=== PATIENT | female | born 1940 | race Asian ===

== ENCOUNTER 2017-11-07 06:28 | Inpatient (IN) | payer MEDICARE, OTHER ==
[~2017-11-07] VITALS: Ht 162.6 cm; Wt 57.8 kg
[2017-11-07] MEDS ORDERED: 0.9% SODIUM CHLORIDE 10 ML SYRINGE IVP PRN (06:45)
[2017-11-07] MEDS ORDERED: SODIUM CHLORIDE 0.9% 500 ML IV ONE (06:45)
[2017-11-07 06:52] LABS: GLUCOSE,POINT OF CARE 125 MG/DL (70-110)
[2017-11-07 07:06] LABS: BASOPHILS # (AUTO) 0.01 K/uL (0.00-0.20); BASOPHILS % (AUTO) 0.1 % (0.0-2.0); EOSINOPHILS % (AUTO) 0.01 % (1.0-6.0); LYMPHOCYTES # (AUTO) 1.4 K/uL (1.0-4.8); LYMPHOCYTES % (AUTO) 6.6 % (22.0-44.0); MEAN CORPUSCULAR HEMOGLOBIN 30.8 pg (26.0-34.0); MEAN CORPUSCULAR HGB CONC 32.7 G/dL (31.0-37.0); MEAN CORPUSCULAR VOLUME 94 fL (80-100); MONOCYTES # (AUTO) 0.5 K/uL (0.1-1.0); MONOCYTES % (AUTO) 2.3 % (2.0-9.0); NEUTROPHILS # (AUTO) 19.3 K/uL (1.8-7.7); PLATELET COUNT (AUTO) 176 K/uL (150-450); RED BLOOD CELL COUNT(AUTO) 5.99 MIL/uL (4.00-5.20); RED CELL DISTRIBUTION WIDTH 12.8 % (11.5-14.5)
[2017-11-07 07:07] LABS: HEMATOCRIT 54.5 % (36-46); HEMOGLOBIN 17.5 g/dL (12.0-16.0); NEUTROPHILS % (AUTO) 91.1 % (40.0-70.0)
[2017-11-07 07:19] LABS: APPEARANCE,URINE CLOUDY (CLEAR); BILIRUBIN,URINE NEGATIVE (NEGATIVE); GLUCOSE, URINE (UA) NEGATIVE (NEGATIVE); KETONES,URINE NEGATIVE (NEGATIVE); LEUKOCYTE ESTERASE ,URINE NEGATIVE (NEGATIVE); NITRATE,URINE NEGATIVE (NEGATIVE); OCCULT BLOOD,URINE NEGATIVE (NEGATIVE); UROBILINOGEN,URINE 0.2 mg/dL (<=1.0)
[2017-11-07 07:20] LABS: INR 1.3 (0.9-1.1); PROTHROMBIN TIME 13.7 SEC (9.4-11.6)
[2017-11-07 07:25] LABS: PROTEIN,URINE TRACE (NEGATIVE)
[2017-11-07 08:12] LABS: LACTIC ACID 4.3 mmol/L (0.4-2.0)
[2017-11-07 08:18] LABS: ALBUMIN 4.3 g/dL (3.4-5.0); BILIRUBIN,TOTAL 1.8 mg/dL (0.1-1.0); CALCIUM, TOTAL 9.6 mg/dL (8.8-10.5); CREATININE 7.33 mg/dL (0.60-1.30); POTASSIUM 3.1 mmol/L (3.5-5.1); TOTAL PROTEIN, SERUM 9.1 g/dL (6.4-8.2)
[2017-11-07] MEDS ORDERED: SODIUM CHLORIDE 0.9% 1,000 ML IV ONE ×2 (08:30→10:45)
[2017-11-07] MEDS ORDERED: AZITHROMYCIN 500 MG/NS 250 ML IV SCH (10:15)
[2017-11-07] MEDS ORDERED: CefTRIAXone SODIUM 1 GM in DEXTROSE 5%-WATER 10 ML IV ONE (10:15)
[2017-11-07] MEDS: POTASSIUM CHL 20 MEQ/0.9% NS 1,000 ML IV SCH ×2 (10:15→18:15)
[2017-11-07 11:30] VITALS: BP 128/74
[2017-11-07] MEDS ORDERED: MAGNESIUM HYDROXIDE SUSPENSION 30 ML UDCUP PO PRN (14:45)
[2017-11-07] MEDS ORDERED: ACETAMINOPHEN 325 MG TABLET PO PRN (14:45)
[2017-11-07] MEDS ORDERED: MORPHINE SULFATE 2 MG/ML SYRINGE IVP PRN (14:45)
[2017-11-07] MEDS ORDERED: IPRATROPIUM BROMIDE 0.5 MG/2.5 ML NEB SOLUTION NEB PRN (14:45)
[2017-11-07] MEDS ORDERED: ONDANSETRON HCL 4 MG/2 ML VIAL IVP PRN (14:45)
[2017-11-07] MEDS ORDERED: HYDROCODONE/ACETAMINOPHEN 5-325 MG TABLET PO PRN (14:45)
[2017-11-07] MEDS ORDERED: ALBUTEROL SULFATE 2.5 MG/0.5 ML NEB SOLUTION NEB PRN (14:45)
[2017-11-07] MEDS ORDERED: ZOLPIDEM TARTRATE 5 MG TABLET PO PRN (14:45)
[2017-11-07] MEDS ORDERED: BISACODYL 10 MG RECTAL RECTAL SUPPOSITORY PR PRN (14:45)
[2017-11-07] MEDS ORDERED: CefTRIAXone SODIUM 1 GM in DEXTROSE 5%-WATER 10 ML IV SCH (15:00)
[2017-11-07 15:02] VITALS: BP 129/74
[2017-11-07 16:26] LABS: ABG A-A DIFF O2 597.4 mmHg (10-20.0); ABG BASE EXCESS -13.1 mmol/L (-2.0-3.0); ABG CARBOXYHEMOGLOBIN 0.6 % (0.0-1.5); ABG HCO3 16.1 mmol/L (22.0-26.0); ABG METHEMOGLOBIN 0.4 % (0.0-1.5); ABG OXYGEN SATURATION 96.1 % (95.0-98.0); ABG OXYHEMOGLOBIN 95.1 % (94.0-100.0); ABG PCO2 26 mmHg (35-45); ABG PH 7.319 (7.35-7.450); ABG TOTAL HEMOGLOBIN 17.2 G/dL (12.0-18.0); PO2, ARTERIAL BG 89.1 mmHg (75.0-83.0); SITE, BLOOD GAS LFT FEMORAL; SOURCE, BLOOD GAS ARTERIAL
[2017-11-07 16:27] LABS: O2 DEVICE,BLOOD GAS BAG VALVE MASK (ROOM AIR)
[2017-11-07] MEDS ORDERED: DEXTROSE 5%-0.45% SODIUM CHL 1,000 ML IV SCH (16:47)
[2017-11-07] MEDS ORDERED: MIDAZOLAM HCL 5 MG/ML VIAL ONE (17:03)
[2017-11-07] MEDS ORDERED: NOREPINEPHRINE 4 MG/D5%-WATER 250 ML IV ONE (17:18)
[2017-11-07] MEDS ORDERED: PHENYLEPHRINE 200 MG/D5%-WATER 250 ML IV PRN (17:30)
[2017-11-07 17:44] LABS: ABG A-A DIFF O2 603.1 mmHg (10-20.0); ABG BASE EXCESS -19.7 mmol/L (-2.0-3.0); ABG CARBOXYHEMOGLOBIN 0.3 % (0.0-1.5); ABG HCO3 10.9 mmol/L (22.0-26.0); ABG METHEMOGLOBIN 0.2 % (0.0-1.5); ABG OXYGEN CONTENT 19.5 mL/dL (15.0-23.0); ABG OXYGEN SATURATION 76.7 % (95.0-98.0); ABG OXYHEMOGLOBIN 76.3 % (94.0-100.0); ABG PCO2 40 mmHg (35-45); ABG PH 7.045 (7.35-7.450); ABG TOTAL HEMOGLOBIN 18.2 G/dL (12.0-18.0); O2 DEVICE,BLOOD GAS VENTILATOR (ROOM AIR); PO2, ARTERIAL BG 64.5 mmHg (75.0-83.0); SITE, BLOOD GAS RT RADIAL; SOURCE, BLOOD GAS ARTERIAL; TEMPERATURE, FAHRENHEIT, BG 102.1 FAHREN (96.0-98.6)
[2017-11-07 17:45] LABS: PEEP,BG 5 cm H2O; VT, ABG 500 ml
[2017-11-07] MEDS ORDERED: VANCOMYCIN HCL 1 GM in DEXTROSE 5%-WATER 250 ML IV ONE (18:00)
[2017-11-07] MEDS: HEPARIN SODIUM,PORCINE 5,000 UNITS/ML VIAL SQ SCH ×2 (18:37→23:11)
[2017-11-07] MEDS: PIPERACILLIN SODIUM/TAZOBACTAM 2.25 GM in DEXTROSE 5%-WATER 50 ML IV SCH (18:37)
[2017-11-07] MEDS: NOREPINEPHRINE 4 MG/D5%-WATER 250 ML IV PRN (18:38)
[2017-11-07] MEDS: PHENYLEPHRINE 200 MG/D5%-WATER 250 ML IV PRN (18:39)
[2017-11-07] MEDS ORDERED: VANCOMYCIN HCL 1 GM/D5% WATER 200 ML IV PRN (19:15)
[2017-11-07] MEDS ORDERED: INFLUENZA VIRUS VACCINE QVS 2017-18 (3YR+)/PF 60 MCG/0.5 ML SYRINGE IM ONE (19:15)
[2017-11-07 20:00] VITALS: BP 125/80
[2017-11-07 20:02] LABS: GLUCOMETER DEV NAME(LOC) 5S 2N; GLUCOSE,POINT OF CARE 118 MG/DL (70-110)
[2017-11-07 20:04] LABS: ABG A-A DIFF O2 467.7 mmHg (10-20.0); ABG BASE EXCESS -24.7 mmol/L (-2.0-3.0); ABG CARBOXYHEMOGLOBIN 0.4 % (0.0-1.5); ABG METHEMOGLOBIN 0.6 % (0.0-1.5); ABG OXYGEN CONTENT 23.8 mL/dL (15.0-23.0); ABG OXYGEN SATURATION 99.1 % (95.0-98.0); ABG OXYHEMOGLOBIN 98.1 % (94.0-100.0); ABG PCO2 26 mmHg (35-45); PO2, ARTERIAL BG 216.5 mmHg (75.0-83.0); SOURCE, BLOOD GAS ARTERIAL; TEMPERATURE, FAHRENHEIT, BG 100.8 FAHREN (96.0-98.6)
[2017-11-07 20:12] LABS: ABG PH 7.011 (7.35-7.450)
[2017-11-07 20:13] LABS: O2 DEVICE,BLOOD GAS VENTILATOR (ROOM AIR); PEEP,BG 5 cm H2O; SITE, BLOOD GAS RT RADIAL; VT, ABG 500 ml
[2017-11-07 21:03] LABS: INFLUENZA TYPE A NEGATIVE FOR TYPE A (NEGATIVE); INFLUENZA TYPE B NEGATIVE FOR TYPE B (NEGATIVE)
[2017-11-07] MEDS: DOCUSATE SODIUM 100 MG CAPSULE PO SCH (21:56)
[2017-11-07] MEDS ORDERED: SODIUM BICARBONATE 150 MEQ in DEXTROSE 5%-WATER 1,000 ML IV SCH (22:00)
[2017-11-07] MEDS ORDERED: SODIUM BICARBONATE [ADULT] 8.4% 50 MEQ/50 ML SYRINGE IVP ONE (22:00)
[2017-11-08] VITALS: BP 91/55
[2017-11-08] MEDS: PIPERACILLIN SODIUM/TAZOBACTAM 2.25 GM in DEXTROSE 5%-WATER 50 ML IV SCH ×2 (02:14→10:09)
[2017-11-08] MEDS: PHENYLEPHRINE 200 MG/D5%-WATER 250 ML IV PRN (03:17)
[2017-11-08] MEDS: NOREPINEPHRINE 4 MG/D5%-WATER 250 ML IV PRN ×3 (03:17→10:45)
[2017-11-08 04:00] VITALS: BP 80/49
[2017-11-08 05:16] LABS: EOSINOPHILS % (AUTO) 0 % (1.0-6.0); HEMATOCRIT 49.6 % (36-46); LYMPHOCYTES # (AUTO) 0.7 K/uL (1.0-4.8); LYMPHOCYTES % (AUTO) 15.4 % (22.0-44.0); MEAN CORPUSCULAR HEMOGLOBIN 30.7 pg (26.0-34.0); MEAN CORPUSCULAR HGB CONC 32.3 G/dL (31.0-37.0); MEAN CORPUSCULAR VOLUME 95 fL (80-100); MONOCYTES # (AUTO) 0.1 K/uL (0.1-1.0); MONOCYTES % (AUTO) 1.2 % (2.0-9.0); NEUTROPHILS # (AUTO) 3.6 K/uL (1.8-7.7); NEUTROPHILS % (AUTO) 83.4 % (40.0-70.0); RED BLOOD CELL COUNT(AUTO) 5.21 MIL/uL (4.00-5.20); RED CELL DISTRIBUTION WIDTH 13.8 % (11.5-14.5)
[2017-11-08] MEDS ORDERED: VASOPRESSIN 40 UNITS in DEXTROSE 5%-WATER 98 ML IV PRN (05:35)
[2017-11-08 05:57] LABS: ALBUMIN 2.1 g/dL (3.4-5.0); BILIRUBIN,TOTAL 1.5 mg/dL (0.1-1.0); CALCIUM, TOTAL 7.3 mg/dL (8.8-10.5); CREATININE 8.59 mg/dL (0.60-1.30); MAGNESIUM 2.4 mg/dL (1.80-2.40); PHOSPHORUS 7.9 mg/dL (2.5-4.9); TOTAL PROTEIN, SERUM 5.2 g/dL (6.4-8.2)
[2017-11-08 07:22] LABS: POTASSIUM 2.9 mmol/L (3.5-5.1)
[2017-11-08] MEDS ORDERED: AMIODARONE HCL 150 MG in DEXTROSE 5%-WATER 97 ML IV ONE (07:30)
[2017-11-08] MEDS ORDERED: AMIODARONE HCL 360 MG in DEXTROSE 5%-WATER 242.8 ML IV ONE (07:30)
[2017-11-08] MEDS ORDERED: POTASSIUM CHL 10 MEQ/WATER 200 ML IV ONE (07:37)
[2017-11-08 07:44] LABS: PLATELET COUNT (AUTO) 67 K/uL (150-450)
[2017-11-08] MEDS ORDERED: POTASSIUM CHL 10 MEQ/WATER 50 ML IV ONE (07:45)
[2017-11-08] MEDS: DOPamine HCL 400 MG/D5%-WATER 250 ML IV PRN ×2 (08:06→12:09)
[2017-11-08] MEDS ORDERED: EPINEPHrine 1:10,000 [1 MG/10 ML] SYRINGE ONE (08:42)
[2017-11-08] MEDS: DOCUSATE SODIUM 100 MG CAPSULE PO SCH (09:00)
[2017-11-08] MEDS ORDERED: PANTOPRAZOLE SODIUM 40 MG/VIAL IVP SCH (09:00)
[2017-11-08 09:11] LABS: ABG A-A DIFF O2 615.6 mmHg (10-20.0); ABG BASE EXCESS -21.4 mmol/L (-2.0-3.0); ABG HCO3 10.1 mmol/L (22.0-26.0); ABG METHEMOGLOBIN 0.1 % (0.0-1.5); ABG OXYGEN CONTENT 17.6 mL/dL (15.0-23.0); ABG OXYGEN SATURATION 91.8 % (95.0-98.0); ABG OXYHEMOGLOBIN 91.7 % (94.0-100.0); ABG PCO2 23 mmHg (35-45); ABG PH 7.136 (7.35-7.450); ABG TOTAL HEMOGLOBIN 13.6 G/dL (12.0-18.0); O2 DEVICE,BLOOD GAS VENTILATOR (ROOM AIR); PO2, ARTERIAL BG 76.8 mmHg (75.0-83.0); SITE, BLOOD GAS RT RADIAL; SOURCE, BLOOD GAS ARTERIAL; TEMPERATURE, FAHRENHEIT, BG 96.7 FAHREN (96.0-98.6)
[2017-11-08 09:12] LABS: PEEP,BG 5 cm H2O; VT, ABG 500 ml
[2017-11-08] MEDS: HEPARIN SODIUM,PORCINE 5,000 UNITS/ML VIAL SQ SCH (09:38)
[2017-11-08 12:00] VITALS: BP 60/35
[2017-11-08] MEDS ORDERED: CefTRIAXone SODIUM 1 GM in DEXTROSE 5%-WATER 10 ML IV SCH (12:00)
[2017-11-08 12:09] VITALS: BP 62/36
[2017-11-08] MEDS ORDERED: AMIODARONE HCL 540 MG in DEXTROSE 5%-WATER 239.2 ML IV ONE (13:30)
[2017-11-08] MEDS ORDERED: AZITHROMYCIN 500 MG/NS 250 ML IV SCH (14:00)
[2017-11-08] MEDS ORDERED: ETOMIDATE 2 MG/ML 10 ML VIAL IV ONE (14:44)
[2017-11-08] MEDS ORDERED: SUCCINYLCHOLINE CHLORIDE 20 MG/ML 10 ML VIAL IM ONE (14:44)
[2017-11-08] MEDS ORDERED: AMIODARONE HCL 50 MG/ML 3 ML VIAL IV ONE (14:44)
[2017-11-08] MEDS ORDERED: EPINEPHrine 1:10,000 [1 MG/10 ML] SYRINGE IVP ONE (14:44)
[2017-11-08] MEDS ORDERED: DEXTROSE 50%-WATER 25 GM/50 ML SYRINGE IVP ONE (14:44)
[2017-11-08] MEDS ORDERED: DOPamine HCL/D5W 400 MG/250 ML IV BAG IV ONE (14:44)
[2017-11-08] MEDS ORDERED: SODIUM BICARBONATE [ADULT] 8.4% 50 MEQ/50 ML SYRINGE IVP ONE (14:44)
[2017-11-09] MEDS ORDERED: AMIODARONE HCL 750 MG in DEXTROSE 5%-WATER 485 ML IV SCH (07:29)
== END 2017-11-08 14:45 | disposition expired | DRG 871 ==
LOC: EMS 06:29 → 5S 09:23 → ICU 10:41
PROVIDERS: ADMIT Hospitalist; ATTEND Hospitalist
PROC: 5A1935Z Respiratory Ventilation, Less than 24 Consecutive Hours (ICD-10-PCS; principal; 2017-11-07)
PROC: 0BH17EZ Insertion of Endotracheal Airway into Trachea, Via Natural or Artificial Opening (ICD-10-PCS; 2017-11-07)
PROC: 06HM33Z Insertion of Infusion Device into Right Femoral Vein, Percutaneous Approach (ICD-10-PCS; 2017-11-07)
PROC: 5A12012 Performance of Cardiac Output, Single, Manual (ICD-10-PCS; 2017-11-08)
PROC: 5A2204Z Restoration of Cardiac Rhythm, Single (ICD-10-PCS; 2017-11-08)
DX: A41.9 Sepsis, unspecified organism (principal); N17.0 Acute kidney failure with tubular necrosis; J96.90 Respiratory failure, unspecified, unspecified whether with hypoxia or hypercapnia; J69.0 Pneumonitis due to inhalation of food and vomit; I46.9 Cardiac arrest, cause unspecified; G93.1 Anoxic brain damage, not elsewhere classified; R65.21 Severe sepsis with septic shock; K66.8 Other specified disorders of peritoneum; G93.41 Metabolic encephalopathy; E87.4 Mixed disorder of acid-base balance; E87.0 Hyperosmolality and hypernatremia; I47.2 Ventricular tachycardia; E86.0 Dehydration; D69.6 Thrombocytopenia, unspecified; E87.6 Hypokalemia; I49.01 Ventricular fibrillation; R73.9 Hyperglycemia, unspecified; F03.90 Unspecified dementia, unspecified severity, without behavioral disturbance, psychotic disturbance, mood disturbance, and anxiety
CPT/HCPCS: 31500; 70450; 82805; 82962; 83605; 83735; 84100; 87040; 87070; 87081; 87205; 87804; 92950; 93005; 93306; 94002; 94003; 96360; 96361; 99291; C9113; J0171; J0282; J0330; J0456; J0696; J1265; J1644; J2250; J2370; J2543; J3370; J3480; J3490; J7030; J7040; J7060